=== PATIENT | female | born 1945 | race Caucasian/White ===

== ENCOUNTER 2018-10-28 08:06 | Day surgery (SDC) | payer OTHER ==
[~2018-10-28] VITALS: Ht 147.3 cm; Wt 93.4 kg
[2018-10-28] MEDS ORDERED: HYDR-3298 PO (08:51)
[2018-10-28] MEDS ORDERED: SITA100T8 PO (08:51)
[2018-10-28] MEDS ORDERED: LIDOCAINE 2% 100 MG/5 ML UJET TP ONE (09:22)
[2018-10-28] MEDS ORDERED: fentaNYL 0.05 MG/ML VIAL ONE (09:22)
[2018-10-28] MEDS ORDERED: fentaNYL 0.05 MG/ML VIAL IVP ONE (10:05)
== END 2018-10-28 10:30 | disposition home or self-care (01) ==
LOC: MOR 08:06 → MMU 08:07 → MOR 10:30
PROVIDERS: ATTEND Internal Medicine Gastroenterology
DX: Z12.11 Encounter for screening for malignant neoplasm of colon (principal); D12.2 Benign neoplasm of ascending colon; D12.4 Benign neoplasm of descending colon; K57.30 Diverticulosis of large intestine without perforation or abscess without bleeding; E11.9 Type 2 diabetes mellitus without complications; I10 Essential (primary) hypertension; M19.90 Unspecified osteoarthritis, unspecified site; E66.01 Morbid (severe) obesity due to excess calories; Z68.41 Body mass index [BMI] 40.0-44.9, adult; Z79.899 Other long term (current) drug therapy; Z90.49 Acquired absence of other specified parts of digestive tract; Z98.890 Other specified postprocedural states; Z80.0 Family history of malignant neoplasm of digestive organs
CPT/HCPCS: 45385; J3010